=== PATIENT | female | born 1990 | race Two or more races ===

== ENCOUNTER 2020-01-01 08:46 | Emergency (ER) | payer OTHER ==
[2020-01-01 09:03] VITALS: TEMP 99; BMI 22.3
[2020-01-01] MEDS ORDERED: ONDANSETRON 4 MG/2 ML VIAL IVPUSH ONE (09:41)
[2020-01-01] MEDS ORDERED: FAMOTIDINE 20 MG/50 ML IVPB 20 MG/50 ML MG IVPB ONE ×2 (09:42→09:53)
[2020-01-01] MEDS ORDERED: SODIUM CHLORIDE 1,000 ML IV STA (09:42)
[2020-01-01] MEDS ORDERED: ACETAMINOPHEN 1000 MG/100 ML VIAL (NON FORMULARY) IVPB ONE (09:48)
[2020-01-01] MEDS ORDERED: ACETAMINOPHEN INJECTION 100 ML IVPB ONE (09:53)
--- NOTE | 2020-01-01 10:04 | PDOC ---
History of Present Illness - General Chief Complaint: Pain Stated Complaint: HEADACHE/NAUSEA Time Seen by Provider: 01/01/20 09:51 History Source: Patient Exam Limitations: No Limitations - History of Present Illness Initial Comments: 01/01/20 10:03 Joyce Diaz is a 29F with no PMH presenting with lower abdominal cramping and N/V. Patient has had lower abdominal cramping the last 2 weeks that has worsened today with nausea. Was otherwise doing okay yesterday but nausea occurred today, unable to eat anything. Denies constipation/diarrhea, but has had heartburn whi ch is unusual for her. Denies SOB, chest pain, dizziness, HOFFMANN, vision changes. LMP November 26, 2019, periods normally late, last sexual activity unprotected vaginal intercourse 2 weeks ago, no condom use or control, no STI history, has had 2 pregnancies in the past without any symptoms like this. Denies vaginal discharge or bleeding, no urinary burning, but has had urinary frequency, No surgeries. Denies alcohol/drug/tobacco use. Past History - Medical History Allergies/Adverse Reactions: Allergies Allergy/AdvReac Type Severity Reaction Status Date / Time No Known Allergies Allergy Verified 01/01/20 08:56 Home Medications: Ambulatory Orders NK [No Known Home Medication] 01/01/20 COPD: No HTN: Yes - Reproductive History Is Patient Now?: No - Psycho-Social/Smoking History Smoking History: Former smoker Have you smoked in the past 12 months: Yes Number of Cigarettes Smoked Daily: 10 If you are a former smoker, when did you quit?: 6 mths ago Information on smoking cessation initiated: Yes - Substance Abuse Hx (Audit-C & DAST Scrn) How often the patient has a drink containing alcohol: Never Score: In Men: 4 or > Positive; In Women: 3 or > Positive: 0 Screen Result (Pos requires Nsg. Audit-10AR): Negative In the last yr the pt used illegal drug/Rx for NonMed reason: No Score: Yes response is considered Positive: 0 Screen Result (Positive result requires Nsg. DAST-10): Negative Review of Systems - Review of Systems Able to Perform ROS?: Yes Constitutional: No: Symptoms Reported HEENTM: No: Symptoms Reported Respiratory: No: Symptoms reported Cardiac (ROS): No: Symptoms Reported ABD/GI: Yes: Nausea, Poor Appetite, Poor Fluid Intake, Abdominal cramping. No: Constipated, Diarrhea, Vomiting : No: Burning, Dysuria, Discharge, Frequency, Flank Pain, Hematuria *Physical Exam - Vital Signs Last Vital Signs Temp Pulse Resp BP Pulse Ox 99 F 81 16 115/79 99 01/01/20 08:50 01/01/20 08:50 01/01/20 08:50 01/01/20 08:50 01/01/20 08:50 - Physical Exam General Appearance: Yes: Nourished, Appropriately Dressed. No: Apparent Distress HEENT: positive: EOMI, ZUNILDA, Normal Voice, Symmetrical, Pharynx Normal. negative: Scleral Icterus (R), Scleral Icterus (L), Pharyngeal Erythema, Tonsillar Exudate, Tonsillar Erythema Neck: positive: Trachea midline, Normal Thyroid, Supple. negative: Tender, Rigid, Lymphadenopathy (R), Lymphadenopathy (L) Respiratory/Chest: positive: Lungs Clear, Normal Breath Sounds. negative: Chest Tender, Respiratory Distress, Accessory Muscle Use, Crackles, Rales, Rhonchi, Stridor, Wheezing Cardiovascular: positive: Regular Rhythm, Regular Rate. negative: Murmur Female Pelvic Exam: positive: normal external exam, cervical os closed, normal adnexa, discharge (thick, white). negative: CMT, vaginal bleeding (no bleeding or clots) Gastrointestinal/Abdominal: positive: Normal Bowel Sounds, Flat, Soft. negative: Tender, Organomegaly Musculoskeletal: positive: Normal Inspection. negative: CVA Tenderness, Decreased Range of Motion Extremity: positive: Normal Capillary Refill, Normal Inspection, Normal Range of Motion, Pelvis Stable. negative: Tender, Pedal Edema, Swelling, Calf Tenderness Integumentary: positive: Normal Color, Dry, Warm Neurologic: positive: Fully Oriented, Alert, Normal Mood/Affect, Normal Response ED Treatment Course - LABORATORY CBC & Chemistry Diagram: 01/01/20 11:00 01/01/20 11:00 Medical Decision Making - Medical Decision Making 01/01/20 10:03 Patient presents with a few weeks of lower abdominal cramping and urinary frequency, LMP over 4 weeks ago. Ddx includes vs. UTI. VSS, exam unremarkable. Getting UA/UC/Upreg for eval bladder/. Patient refusing labs/IV until UA results come back. 01/01/20 10:48 Urine test positive. 01/01/20 11:29 Patient initially refusing labs, explained new diagnosis or , importance or evaluating if miscarriage vs. ectopic vs. IUP. Pelvic exam performed, some white discharge but non-tender, no bleeding, os charlene sed. Abdomen soft but says it feels uncomfortable. Anxious-appearing. Labs sent, sending to US now. Refusing IV meds at this time despite assurance that medications are safe for , 01/01/20 13:00 Patient brought to US. Labs notable for: - CBC WNL - CMP WNL - Coags WNL - T&S O+, no Rhogam needed - Beta hCG 64036.1 01/01/20 13:57 US shows single IU gestatinal sac compatible with 5 weeks 2 days gestation, but no pole or yolk sac. Unable to visualize right ovary, normal appearing le ft ovary. Consulted Dr. Van with [facility] [facility] for eval ectopic . Given results of US and labs, does not believe this is ruptured ectopic, could be too early to see. No vaginal bleeding, no miscarriage yet. Given clean labs, no UTI, and non- tender abdomen, can follow-up in the next 2 days for repeat hCG testing and evaluation, strict return precautions for vaginal bleeding. Discussed this with patient in length, if she has any worsening pain, vaginal bleeding, strict return precautions. Has been seen for this before, last hCG 200, but empty uterus at that time as well. Given multiple [employer] for f/u, feeling anxious but well at this time, no abd pain or tenderness at this time. Stable for discharge home Discharge - Discharge Information Problems reviewed: Yes Clinical Impression/Diagnosis: Urinary frequency Abdominal pain Qualifiers: Abdominal location: lower abdomen, unspecified Qualified Code(s): R10.30 - Lo wer abdominal pain, unspecified Qualifiers: Weeks of gestation: unspecified Qualified Code(s): Z34.90 - Encounter for supervision of normal , unspecified, unspecified trimester Condition: Stable Disposition: HOME - Follow up/Referral Referrals: José Lewis MD [Staff Physician] - Jay Van MD [Staff Physician] - Laverne James MD [Staff Physician] - Matthieu Ogden MD [Staff Physician] - Cordell Barriga MD [Staff Physician] - - Patient Discharge Instructions Patient Printed Discharge Instructions: DI for Ectopic , DI for Vaginal Bleeding During Additional Instructions: Today you were evaluated for abdominal pain. Your labs show that you are , but do not have any problems in your blood or urine tests. Your blood test is positive and consistent with a 4 week old , [place] [address]. However, your ultrasound does not show any signs of a fetus. There are two options: your is still early, or you have a in a location that is not the womb, which could be an emergency as this could cause a rupture and internal bleeding. We have spoken to an [employer] Dr. Van, who does not believe that you need to stay in the hospital. You need to see an [employer] in the next 2 days for further evaluation. If you experience worsening pain, nausea, vomiting, vaginal bleeding, burning with urination, or any other new or concerning symptoms, you need to return to the emergency room immediately for further care. - Post Discharge Activity Work/Back to School Note: Back to Work, Parent(s) Back to Work Note
--- NOTE | 2020-01-01 11:04 | PDOC ---
Documentation entered by Jessica Radford SCRIBE, acting as scribe for Darnell Payne MD. Darnell Payne MD: This documentation has been prepared by the Prabhakar puentes Ana, SCRIBE, under my direction and personally reviewed by me in its entirety. I confirm that the documentation accurately reflects all work, treatment, procedures, and medical decision making performed by me. Attending Attestation - Resident Resident Name: SamariaAxel - ED Attending Attestation I have performed the following: I have examined & evaluated the patient, The case was reviewed & discussed with the resident, I agree w/resident's findings & plan, Exceptions are as noted - HPI HPI: 01/01/20 09:47 Patient is a 29 year old female with no significant past medical history who presents to the ED with lower abdominal cramping and associated nausea, vo miting, and poor PO intake. Patient stated she has had these cramps for 2 weeks but the nausea started today. LMP: 11/26/2019 - last had unprotected sex 2 weeks ago. Patient endorses: decrease in appetite, heartburn, and a change in urinary frequency Patient denies: dizziness, headache, any vision changes, SOB, chest pain, diarrhea, constipation, vaginal discharge, vaginal bleeding, urinary burning, any other related symptoms. Allergies: NKDA - Physicial Exam PE: 01/01/20 09:48 See resident exam. - Medical Decision Making 01/01/20 11:05 29 F with lower abdominal cramps, nausea, vomiting. LMP >1 month ago. Suspect . - UA, UPT - Pt refusing bloodwork 01/01/20 14:06 UPT + Labs obtained HCG [id number] TVUS shows no IUP Discussed with Dr. Van, recommending outpt f/u for repeat bloodwork and US Pt is well appearing, with normal vitals. Clinically stable for DC at this time. I discussed the physical exam findings, ancillary test results and final diagnoses with the patient. I answered all of the patient's questions. The patient was satisfied with the care received and felt comfortable with the discharge plan and treatment plan. The patient agrees to follow up with the primary care physician within 24-72 hours. Discharge - Discharge Information Problems reviewed: Yes Clinical Impression/Diagnosis: Urinary frequency Abdominal pain Qualifiers: Abdominal location: lower abdomen, unspecified Qualified Code(s): R10.30 - Lower abdominal pain, unspecified Qualifiers: Weeks of gestation: unspecified Qualified Code(s): Z34.90 - Encounter for supervision of normal , unspecified, unspecified trimester Condition: Stable Disposition: HOME - Follow up/Referral Referrals: Cordell Barriga MD [Staff Physician] - Laverne James MD [Staff Physician] - José Lewis MD [Staff Physician] - Matthieu Ogden MD [Staff Physician] - Jay Van MD [Staff Physician] - - Patient Discharge Instructions Patient Printed Discharge Instructions: DI for Ectopic , DI for Vaginal Bleeding During Additional Instructions: Today you were evaluated for abdominal pain. Your labs show that you are , but do not have any problems in your blood or urine tests. Your blood test is positive and consistent with a 4 week old , [place] [id number]. However, your ultrasound does not show any signs of a fetus. There are two options: your is still early, or you have a in a location that is not the womb, which could be an e mergency as this could cause a rupture and internal bleeding. We have spoken to an [employer] Dr. Van, who does not believe that you need to stay in the hospital. You need to see an [employer]ER in the next 2 days for further evaluation. If you experience worsening pain, nausea, vomiting, vaginal bleeding, burning with urination, or any other new or concerning symptoms, you need to return to the emergency room immediately for further care. - Post Discharge Activity Work/Back to School Note: Back to Work, Parent(s) Back to Work Note
[2020-01-01 11:18] LABS: PH,URINE 5.5 (5.0-8.0); URINE APPEARANCE CLEAR; URINE BILIRUBIN NEGATIVE (NEGATIVE); URINE COLOR YELLOW; URINE GLUCOSE (UA) NEGATIVE (NEGATIVE); URINE KETONE NEGATIVE (NEGATIVE); URINE LEUK ESTERASE NEGATIVE (NEGATIVE); URINE NITRITE NEGATIVE (NEGATIVE); URINE PROTEIN NEGATIVE (NEGATIVE); URINE UROBILINOGEN 0.2 mg/dL (0.2-1.0)
[2020-01-01 11:45] LABS: BASO % 0.8 % (0-2.0); EOS % 0.4 % (0-4.5); HEMATOCRIT 39.2 % (32.4-45.2); HEMOGLOBIN 13.2 GM/dL (10.7-15.3); MCH 31.3 pg (25.7-33.7); MCHC 33.8 g/dl (32.0-36.0); MEAN CELL VOLUME 92.5 fl (80-96); MEAN PLT VOLUME 9.2 fl (7.5-11.1); MONO % 6.8 % (3.8-10.2); PLATELET COUNT 216 K/MM3 (134-434); RBC 4.24 M/mm3 (3.60-5.2); WHITE BLOOD COUNT 3.9 K/mm3 (4.0-10.0)
[2020-01-01 12:10] LABS: ALBUMIN 4.1 g/dl (3.4-5.0); BILIRUBIN,TOTAL 0.6 mg/dL (0.2-1); BLOOD UREA NITROGEN 8.6 mg/dL (7-18); CALCIUM 9.1 mg/dL (8.5-10.1); CREATININE 0.7 mg/dL (0.55-1.3); MAGNESIUM 2.1 mg/dL (1.8-2.4); TOT PROT 7.6 g/dl (6.4-8.2)
[2020-01-01 14:40] VITALS: BP 117/76; PULSE 75
[2020-01-02 02:19] LABS: HCG,QUALITATIVE URINE Positive
== END 2020-01-01 14:30 | disposition home or self-care (01) ==
LOC: JER 08:46
DX: R35.0 Frequency of micturition (principal); R10.30 Lower abdominal pain, unspecified
CPT/HCPCS: 36415; 76817-TC; 80053; 81003; 83690; 83735; 84702; 84703; 85025; 86850; 86900; 86901; 87086; 99284-25

== ENCOUNTER 2020-03-14 12:44 | Emergency (ER) | payer OTHER ==
[2020-03-14 12:49] VITALS: BP 127/75; PULSE 88; TEMP 98; BMI 23.1
== END 2020-03-14 14:57 | disposition home or self-care (01) ==
LOC: JER 12:44 → JERFT 12:44
DX: S33.5XXA Sprain of ligaments of lumbar spine, initial encounter (principal)
CPT/HCPCS: 76815; 99283-25